=== PATIENT | female | born 1990 | race Caucasian/White ===

== ENCOUNTER 2020-06-18 14:53 | Emergency (ER) | payer BC, MEDICAID ==
[~2020-06-18] VITALS: Ht 162.6 cm; Wt 105.9 kg
[2020-06-18 15:25] LABS: BASOPHILS % (AUTO) 1 % (0-1); EOSINOPHILS % (AUTO) 3 % (1-7); LYMPHOCYTES % (AUTO) 31 % (22-44); MEAN CORPUSCULAR HEMOGLOBIN 28.1 pg (27.0-34.8); MEAN CORPUSCULAR HGB CONC 32.8 g/dL (32.4-35.8); MEAN PLATELET VOLUME 6.8 fL (7.4-10.4); MONOCYTES % (AUTO) 8 % (2-9); NEUTROPHILS % (AUTO) 57 % (42-75); PLATELET COUNT 396 x10^3/uL (130-400); RED BLOOD COUNT 4.67 x10^6/uL (3.82-5.3); RED CELL DISTRIBUTION WIDTH 14.8 % (9.6-15.2)
--- NOTE | 2020-06-18 15:30 | NUR ---
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
[2020-06-18 15:35] LABS: ALBUMIN 3.5 g/dL (3.4-5.0); ANION GAP 4 mmol/L (5-15); CALCIUM 9.3 mg/dL (8.5-10.1); CHLORIDE 109 mmol/L (98-107); CREATININE 0.76 mg/dL (0.55-1.02)
[2020-06-18 15:38] LABS: MD NO
[2020-06-18 15:48] LABS: MICROSCOPIC AUTO
--- NOTE | 2020-06-18 16:17 | NUR ---
DR HERBERT IN ROOM.
--- NOTE | 2020-06-18 16:19 | NUR ---
NO PELVIC PER DR HERBRET
[2020-06-18] MEDS ORDERED: CEFTRIAXONE 250 MG IM ONE (16:30)
[2020-06-18] MEDS ORDERED: AZITHROMYCIN 500 MG TABLET PO ONE (16:30)
[2020-06-18] MEDS ORDERED: AZITHROMYCIN 500 MG TABLET ONE (16:35)
[2020-06-18] MEDS ORDERED: CEFTRIAXONE 250 MG ONE (16:35)
[2020-06-18 16:56] VITALS: BP 115/71
== END 2020-06-18 17:00 | disposition home or self-care (01) ==
LOC: ED 15:47
DX: A64 Unspecified sexually transmitted disease (principal); N89.8 Other specified noninflammatory disorders of vagina; R30.0 Dysuria; F17.200 Nicotine dependence, unspecified, uncomplicated
CPT/HCPCS: 36415; 80048; 81001; 82040; 84703; 85025; 87086; 87491; 87591; 96372; 99283; J0696; 99284

== ENCOUNTER 2020-08-29 07:14 | Emergency (ER) | payer MEDICAID ==
[~2020-08-29] VITALS: Ht 162.6 cm; Wt 104.9 kg
[2020-08-29 07:25] VITALS: BP 118/88
[2020-08-29 08:06] LABS: CLUE CELLS NONE SEEN (NONE SEEN); WET PREP WBCS MANY (FEW)
[2020-08-29] MEDS ORDERED: metroNIDAZOLE 500 MG TABLET PO ONE (08:30)
[2020-08-29] MEDS ORDERED: metroNIDAZOLE 500 MG TABLET ONE (08:30)
--- NOTE | 2020-08-29 08:34 | NUR ---
Patient/Caregiver given discharge instructions and they have confirmed that they understand the instructions. Patient ambulatory with steady gait.
== END 2020-08-29 08:47 | disposition home or self-care (01) ==
LOC: ED 08:04
DX: A59.01 Trichomonal vulvovaginitis (principal)
CPT/HCPCS: 87210; 87491; 87591; 87808; 99283

== ENCOUNTER 2020-10-26 00:43 | Emergency (ER) | payer MEDICAID ==
[~2020-10-26] VITALS: Ht 162.6 cm; Wt 110.0 kg
--- NOTE | 2020-10-26 01:06 | NUR ---
Pt reports she thinks she had a seizure 2 days ago- reports she was walking then felt like a helicopter was overhead, got tunnel vision and felt like she passed out, someone helped her to the ground gently and told her her eyes rolled back and her head and neck started convulsing back and forth. Pt reports that since then she has felt general malaise and like she is in a fog. Pt reports she has felt some numbness and tingling in her arms and legs. Speech clear and appropriate, sensation intact face and all extremities bilaterally, strength strong and equal throughout.
[2020-10-26] MEDS ORDERED: ONDANSETRON ODT 4 MG PO ONE (01:30)
[2020-10-26] MEDS ORDERED: MECLIZINE CHEWABLE 25 MG TAB PO ONE (01:30)
[2020-10-26] MEDS ORDERED: ONDANSETRON ODT 4 MG ONE (01:42)
[2020-10-26] MEDS ORDERED: MECLIZINE CHEWABLE 25 MG TAB ONE (01:43)
--- NOTE | 2020-10-26 01:56 | NUR ---
Medicated per eMAR. EKG done and delivered to MD. Lab at bedside.
--- NOTE | 2020-10-26 02:02 | NUR ---
Pt to CT
[2020-10-26 02:07] LABS: BASOPHILS % (AUTO) 1 % (0-1); EOSINOPHILS % (AUTO) 3 % (1-7); LYMPHOCYTES % (AUTO) 38 % (22-44); MEAN CORPUSCULAR HEMOGLOBIN 28.4 pg (27.0-34.8); MEAN CORPUSCULAR HGB CONC 33.5 g/dL (32.4-35.8); MEAN PLATELET VOLUME 6.6 fL (7.4-10.4); MONOCYTES % (AUTO) 7 % (2-9); NEUTROPHILS % (AUTO) 51 % (42-75); PLATELET COUNT 348 x10^3/uL (130-400); RED BLOOD COUNT 4.58 x10^6/uL (3.82-5.3); RED CELL DISTRIBUTION WIDTH 14.7 % (9.6-15.2)
[2020-10-26 02:09] LABS: MD NO
--- NOTE | 2020-10-26 02:09 | NUR ---
Pt back from CT
[2020-10-26 02:16] LABS: ALBUMIN 3.3 g/dL (3.4-5.0); ANION GAP 6 mmol/L (5-15); CALCIUM 9.1 mg/dL (8.5-10.1); CHLORIDE 109 mmol/L (98-107); CREATININE 0.77 mg/dL (0.55-1.02)
[2020-10-26 02:38] VITALS: BP 114/64
--- NOTE | 2020-10-26 04:17 | NUR ---
PT LEFT BEFORE RECIEVING DISCHARGE PAPERWORK/INSTRUCTIONS
== END 2020-10-26 04:18 | disposition home or self-care (01) ==
LOC: ED 01:12
DX: S06.0X1A Concussion with loss of consciousness of 30 minutes or less, initial encounter (principal); R11.0 Nausea; R51.9 Headache, unspecified; R42 Dizziness and giddiness; R55 Syncope and collapse; X58.XXXA Exposure to other specified factors, initial encounter; Y93.89 Activity, other specified; Y92.89 Other specified places as the place of occurrence of the external cause; Y99.8 Other external cause status
CPT/HCPCS: 36415; 70450; 80048; 82040; 84703; 85025; 93005; 99285; Q0162